=== PATIENT | female | born 1985 ===

== ENCOUNTER 2020-11-25 07:36 | Day surgery (SDC) | payer OTHER | END 2020-11-25 16:20 | disposition home or self-care (01) | LOC: CIR.AMB 07:36 | PROVIDERS: ATTEND Obstetrics & Gynecology Maternal & Fetal Medicine | DX: O34.32 Maternal care for cervical incompetence, second trimester (principal); Z3A.14 14 weeks gestation of pregnancy; Z20.822 Contact with and (suspected) exposure to COVID-19 ==

== ENCOUNTER 2021-02-06 13:34 | Outpatient (CLI) | payer OTHER | END 2021-02-06 13:54 | disposition home or self-care (01) | LOC: NST 13:34 | PROVIDERS: ATTEND Obstetrics & Gynecology | DX: Z34.83 Encounter for supervision of other normal pregnancy, third trimester (principal) ==

== ENCOUNTER → 2021-03-08 | Outpatient (CLI) | payer OTHER | END | disposition home or self-care (01) | LOC: NST 13:20 | PROVIDERS: ATTEND Obstetrics & Gynecology Maternal & Fetal Medicine | DX: O34.33 Maternal care for cervical incompetence, third trimester (principal) ==

== ENCOUNTER 2021-03-30 09:35 | Outpatient (CLI) | payer OTHER | END 2021-03-30 10:39 | disposition home or self-care (01) | LOC: NST 09:35 | PROVIDERS: ATTEND Obstetrics & Gynecology Maternal & Fetal Medicine | DX: O34.33 Maternal care for cervical incompetence, third trimester (principal) ==

== ENCOUNTER 2021-04-27 10:53 | Outpatient (CLI) | payer OTHER | END 2021-04-27 11:35 | disposition home or self-care (01) | LOC: NST 10:53 | PROVIDERS: ATTEND Obstetrics & Gynecology Maternal & Fetal Medicine | DX: Z34.83 Encounter for supervision of other normal pregnancy, third trimester (principal) ==